=== PATIENT | female | born 1985 | race Caucasian/White ===

== ENCOUNTER 2024-05-09 20:19 | Emergency (ER) | payer OTHER ==
[~2024-05-09] VITALS: Ht 165.1 cm; Wt 77.1 kg
[2024-05-09] MEDS ORDERED: ONDANSETRON ODT 4 MG TAB.RAPDIS ONE (20:44)
[2024-05-09] MEDS ORDERED: KETOROLAC TROMETHAMINE 30 MG INJ ONE (20:44)
[2024-05-09] MEDS ORDERED: MORPHINE SULFATE 4 MG/1 ML DISP.SYRIN ONE (20:45)
[2024-05-09] MEDS: KETOROLAC TROMETHAMINE 30 MG INJ IVP ONE (21:08)
[2024-05-09] MEDS: ONDANSETRON ODT 4 MG TAB.RAPDIS SL ONE (21:08)
[2024-05-09] MEDS: MORPHINE SULFATE 4 MG/1 ML DISP.SYRIN IV ONE (21:08)
[2024-05-09 22:38] LABS: CALCIUM 9.6 mg/dL (8.5-10.1); CREATININE 0.8 mg/dL (0.6-1.3); POTASSIUM 3.4 mmol/L (3.5-5.1)
[2024-05-09 22:47] LABS: BASOPHILS # (AUTO) 0.1 K/UL (0.0-0.2); BASOPHILS % (AUTO) 0.9 % (0.0-2.0); EOSINOPHILS # (AUTO) 0.1 K/uL (0.0-0.7); EOSINOPHILS % (AUTO) 1.5 % (0.0-7.0); HEMATOCRIT 41.1 % (31.2-41.9); HEMOGLOBIN 14.1 g/dL (10.9-14.3); LYMPHOCYTES # (AUTO) 2.7 K/uL (0.8-4.8); LYMPHOCYTES % (AUTO) 31.6 % (20.5-51.5); MEAN CORPUSCULAR HGB CONC 34 g/dL (32.3-35.6); MEAN CORPUSCULAR VOLUME 87.4 fL (75.5-95.3); MONOCYTES # (AUTO) 0.5 K/uL (0.1-1.30); MONOCYTES % (AUTO) 5.9 % (0.0-11.0); NEUTROPHILS # (AUTO) 5.1 K/uL (1.8-8.9); NEUTROPHILS % (AUTO) 60.1 % (38.5-71.5); PLATELET COUNT (AUTO) 210 K/uL (179-408); RED BLOOD CELL COUNT(AUTO) 4.71 MIL/uL (3.63-4.92); RED CELL DISTRIBUTION WIDTH 12.9 % (12.3-17.7); WHITE BLOOD COUNT (AUTO) 8.5 K/uL (3.8-11.8)
[2024-05-09] MEDS: IV NORMAL SALINE 1000 ML BAG IV ONE (23:13)
[2024-05-10] MEDS ORDERED: HYDR-3980 PO (00:41)
[2024-05-10] MEDS ORDERED: IBUP-1955 PO (00:41)
[2024-05-10 01:06] VITALS: BP 115/79; TEMP 98.6; O2SAT 100
== END 2024-05-10 01:07 | disposition home or self-care (01) ==
LOC: ER 20:19
DX: S13.4XXA Sprain of ligaments of cervical spine, initial encounter (principal); M25.552 Pain in left hip; M79.18 Myalgia, other site; R10.2 Pelvic and perineal pain; R07.89 Other chest pain; Z86.19 Personal history of other infectious and parasitic diseases; Z88.1 Allergy status to other antibiotic agents; V43.62XA Car passenger injured in collision with other type car in traffic accident, initial encounter; Y93.89 Activity, other specified; Y92.488 Other paved roadways as the place of occurrence of the external cause; Y99.8 Other external cause status
CPT/HCPCS: 99285; 71250; 96374; 71045; 96361; 96375; 80048; 85025; 84702; 36415; 72040; 72170; 72125; 74176; J1885; J2270; J7040; A4606; A4663; Q0162